=== PATIENT | male | born 1995 ===

== ENCOUNTER 2016-09-07 16:07 | Emergency (ER) | payer BC ==
[~2016-09-07] VITALS: Ht 167.6 cm; Wt 75.8 kg
[2016-09-07 16:13] VITALS: Ht 167.6 cm; Wt 75.8 kg
[2016-09-07] MEDS ORDERED: ONDANSETRON INJ 2 MG/ML 2 ML VIAL IV STA ×2 (16:52→18:58)
[2016-09-07] MEDS ORDERED: SODIUM CHLORIDE 0.9% 1000ML 2,000 ML IV STA (16:52)
[2016-09-07] MEDS ORDERED: KETOROLAC TROMETHAMINE 30 MG/ML VIAL IV STA (16:52)
[2016-09-07 17:04] LABS: BASO % 0.1 %; BASO ABS # 0.01 K/uL (0-0.2); COMPLETE YES; EOS % 0.1 %; HEMATOCRIT 50.2 % (42-52); IG% 0.2 %; LYMPH % 2.7 %; LYMPH ABS # 0.35 K/uL (1.2-3.4); MEAN CELL VOLUME 88.7 fL (80-100); MEAN CORPUSCULAR HEMOGLOBIN 30.2 pg (25-34); MEAN CORPUSCULAR HGB CONC 34.1 g/dl (32-36); MONO % 4.5 %; NEUT % 92.4 %; PLATELET COUNT 239 K/uL (130-400); RED BLOOD COUNT 5.66 M/uL (4.7-6.1); WHITE BLOOD COUNT 13.01 K/uL (4.8-10.8)
[2016-09-07 17:06] LABS: URINE APPEARANCE CLEAR (CLEAR); URINE BILIRUBIN NEG (NEG); URINE COLOR YELLOW; URINE NITRITE NEG (NEG); URINE PH 6.5 (4.5-7.5); URINE SPECIFIC GRAVITY 1.026 (1.000-1.030); UROBILINOGEN NEG (NEG); ZZUR CULT IF INDIC CLEAN CATCH NO
[2016-09-07 17:08] LABS: MANUAL MICROSCOPIC REQUIRED? NO; REVIEW REQ? YES
[2016-09-07 17:17] LABS: URINE MUCUS PRESENT (NONE PRSENT)
[2016-09-07 17:36] LABS: BUN/CREATININE RATIO 17.5 (10-20); CALCIUM 9.1 mg/dl (8.5-10.1); CREATININE 1.1 mg/dl (0.60-1.40)
[2016-09-07] MEDS ORDERED: ONDA4TAB46 PO (19:25)
[2016-09-07] MEDS ORDERED: ONDANSETRON HOME PACK 4MG OD TAB PO ONE (19:30)
[2016-09-07 20:07] VITALS: BP 131/77; PULSE 102; TEMP 36.8; O2SAT 95
--- NOTE | 2016-09-07 23:40 | EMERGENCY ROOM VISIT NOTE ---
History Report prepared by Shant: Antonio Voss Under the Supervision of: Ronna PathakO. First contact with patient: 16:28 Chief Complaint: VOMITING Stated Complaint: THROWING UP,CANT KEEP ANYTHING DOWN, DIZZY History of Present Illness The patient is a 21 year old male who presents to the Emergency Room with complaints of persistent diarrhea and vomiting that began this morning, several hours prior to arrival. The patient states that he did go out to the bars last night, and thought that his symptoms this morning were the result of an alcohol hangover. The vomiting and diarrhea continued throughout the day and he could not eat or drink anything. He started to feel dizzy this afternoon from not eating or drinking. The patient also complains of nausea and diffuse abdominal pain throughout the day. This abdominal pain is improved after a bowel movement or vomiting for a short period of time, and then returns. He claims that he has had six episodes of vomiting and two episodes of diarrhea today. His roommate did have a GI bug recently that resolved on its own. He denies headache, change in vision, fevers, chest pain, shortness of breath, pain with urination, and melena. He denies any history of abdominal surgery. Source of History: patient Onset: Several hours [employer] Position: other (Gastrointestinal) Quality: other (V/D) Timing: other (Persistent) Associated Symptoms: + abdominal pain Note: Dizziness. Review of Systems See HPI for pertinent positives & negatives. A total of 10 systems reviewed and were otherwise negative. Past Medical & Surgical Patient notes no past medical/surgical histories. Family History Patient reports no family medical histories. Social History Smoking Status: Never Smoker Alcohol Use: occasionally Marital Status: single Housing Status: lives with roommate Occupation Status: [employer] student Current/Historical Medications Scheduled PRN Ondansetron Hcl (Zofran), 4 MG PO TID PRN for Nausea Allergies Coded Allergies: No Known Allergies (Unverified , 09/07/16) Physical Exam Vital Signs Date Time Temp Pulse Resp B/P Pulse Ox O2 Delivery O2 Flow Rate FiO2 09/07/16 20:07 102 20 131/77 95 Room Air 09/07/16 20:07 36.8 102 20 131/77 95 09/07/16 18:45 101 20 127/78 95 Room Air 09/07/16 16:47 101 20 128/81 95 Room Air 09/07/16 16:13 36.8 109 20 130/86 95 Room Air Physical Exam GENERAL: Laying in bed, disheveled appearing. Non-toxic. EYE EXAM: normal conjunctiva, PERRL and EOM's grossly intact OROPHARYNX: no exudate, no erythema, lips, buccal mucosa, and tongue normal and mucous membranes are moist NECK: supple, no nuchal rigidity, no adenopathy, non-tender LUNGS: Clear to auscultation. Normal chest wall mechanics HEART: Tachycardiac. no murmurs, S1 normal and S2 normal ABDOMEN: abdomen soft, non-tender, normo-active bowel sounds, no masses, no rebound or guarding. BACK: Back is symmetrical on inspection and there is no deformity, no midline tenderness, no CVA tenderness. SKIN: no rashes and no bruising UPPER EXTREMITIES: upper extremities are grossly normal. LOWER EXTREMITIES: No pitting edema. NEURO EXAM: Normal sensorium, cranial nerves II-XII grossly intact, normal speech, no gross weakness of arms, no gross weakness of legs. Medical Decision & Procedures Laboratory Results 09/07/16 16:40 Red Blood Count 5.66, Mean Corpuscular Volume 88.7, Mean Corpuscular Hemoglobin 30.2, Mean Corpuscular Hemoglobin Concent 34.1, Mean Platelet Volume 11.0, Neutrophils (%) (Auto) 92.4, Lymphocytes (%) (Auto) 2.7, Monocytes (%) (Auto) 4.5, Eosinophils (%) (Auto) 0.1, Basophils (%) (Auto) 0.1, Neutrophils # (Auto) 12.04, Lymphocytes # (Auto) 0.35, Monocytes # (Auto) 0.58, Eosinophils # (Auto) 0.01, Basophils # (Auto) 0.01 09/07/16 16:40 Test 09/07/16 16:40 White Blood Count 13.01 K/uL (4.8-10.8) Red Blood Count 5.66 M/uL (4.7-6.1) Hemoglobin 17.1 g/dL (14.0-18.0) Hematocrit 50.2 % (42-52) Mean Corpuscular Volume 88.7 fL (80-100) Mean Corpuscular Hemoglobin 30.2 pg (25-34) Mean Corpuscular Hemoglobin Concent 34.1 g/dl (32-36) Platelet Count 239 K/uL (130-400) Mean Platelet Volume 11.0 fL (7.4-10.4) Neutrophils (%) (Auto) 92.4 % Lymphocytes (%) (Auto) 2.7 % Monocytes (%) (Auto) 4.5 % Eosinophils (%) (Auto) 0.1 % Basophils (%) (Auto) 0.1 % Neutrophils # (Auto) 12.04 K/uL (1.4-6.5) Lymphocytes # (Auto) 0.35 K/uL (1.2-3.4) Monocytes # (Auto) 0.58 K/uL (0.11-0.59) Eosinophils # (Auto) 0.01 K/uL (0-0.5) Basophils # (Auto) 0.01 K/uL (0-0.2) RDW Standard Deviation 43.2 fL (36.4-46.3) RDW Coefficient of Variation 13.3 % (11.5-14.5) Immature Granulocyte % (Auto) 0.2 % Immature Granulocyte # (Auto) 0.02 K/uL (0.00-0.02) Urine Color YELLOW Urine Appearance CLEAR (CLEAR) Urine pH 6.5 (4.5-7.5) Urine Specific [place] 1.026 (1.000-1.030) Urine Protein NEG (NEG) Urine Glucose (UA) NEG (NEG) Urine Ketones NEG (NEG) Urine Occult Blood NEG (NEG) Urine Nitrite NEG (NEG) Urine Bilirubin NEG (NEG) Urine Urobilinogen NEG (NEG) Urine Leukocyte Esterase NEG (NEG) Urine WBC (Auto) 1-5 /hpf (0-5) Urine RBC (Auto) 0-4 /hpf (0-4) Urine Hyaline Casts (Auto) 1-5 /lpf (0-5) Urine Epithelial Cells (Auto) 5-10 /lpf (0-5) Urine Bacteria (Auto) NEG (NEG) Urine Mucus PRESENT (NONE PRSENT) Anion Gap 11.0 mmol/L (3-11) Est Creatinine Clear Calc Drug Dose 95.8 ml/min Estimated GFR () 110.6 Estimated GFR (Non- 95.5 BUN/Creatinine Ratio 17.5 (10-20) Calcium Level 9.1 mg/dl (8.5-10.1) Total Bilirubin 0.7 mg/dl (0.2-1) Direct Bilirubin 0.1 mg/dl (0-0.2) Aspartate Amino Transf (AST/SGOT) 18 U/L (15-37) Alanine Aminotransferase (ALT/SGPT) 31 U/L (12-78) Alkaline Phosphatase 86 U/L (45-117) Total Protein 8.6 gm/dl (6.4-8.2) Albumin 4.5 gm/dl (3.4-5.0) Lipase 95 U/L (73-393) Laboratory results per my review. Medications Administered Medications (Trade) Dose Ordered Sig/Anabella Route Start Time Stop Time Status Last Admin Dose Admin Sodium Chloride (Nss 1000ml) 2,000 ml @ 999 mls/hr Q2H1M STAT IV 09/07/16 16:52 09/07/16 18:52 DC 09/07/16 17:08 999 MLS/HR Ondansetron HCl (Zofran Inj) 4 mg NOW STAT IV 09/07/16 16:52 09/07/16 16:53 DC 09/07/16 17:08 4 MG Ketorolac Tromethamine (Toradol Inj) 30 mg NOW STAT IV 09/07/16 16:52 09/07/16 16:53 DC 09/07/16 17:09 30 MG Ondansetron HCl (Zofran Inj) 4 mg NOW STAT IV 09/07/16 18:58 09/07/16 18:59 DC 09/07/16 19:07 4 MG Ondansetron HCl (ZOFRAN ODT 4MG Home Pack) 1 homepack UD ONCE PO 09/07/16 19:30 09/07/16 19:31 DC 09/07/16 20:06 1 HOMEPACK ED Course ED COURSE: Vital signs were reviewed and showed tachycardiac heart rate. The patients medical record was reviewed The above diagnostic studies were performed and reviewed. ED treatments and interventions as stated above. 1644: The patient was evaluated in room B10. A complete history and physical examination was performed. 1652: Ordered Toradol 30 mg IV, Zofran 4 mg IV, Sodium Chloride 2000 mL @ 999 mL /hr IV. 1841: I checked on the patient at this time. I also spoke with his sister who is a physician. They are happy with the treatment plan. 1858: Ordered Zofran 4 mg IV. 1923: The patient is handling fluids well at this time. 1929: Ordered Zofran 1 homepack PO 1935: Upon reevaluation, the patient is feeling well.I discussed my findings with the patient and he understands and agrees with the treatment plan. Based on the patients age, coexisting illnesses, exam and lab findings the decision to treat as an outpatient was made. The patient remained stable while under my care. The patient appeared well at the time of discharge. Medical Decision Differential diagnosis: Etiologies such as gastroenteritis, food borne illness, infections, appendicitis , diverticulitis, inflammatory bowel disease, obstruction, GI bleed, biliary pathology, as well as others were entertained. The patient's history was concerning for nausea, vomiting, diarrhea, and abdominal pain. He notes that this started this a.m. He had 6 episodes of vomiting and 2 episodes of diarrhea. His room and has the same symptoms. On exam he is completely benign abdomen. He is given 2 L normal saline along with Zofran and Toradol. He had near complete resolution of all the symptoms. He is able tolerate a small amount Gatorade. Labs show a mild leukocytosis. BMP along with LFTs, bilirubin and lipase was unremarkable. UA was unremarkable. On reexam has fairly significant better. Discussed this with his sister who is an internal medicine doctor. I do favor this likely gastroenteritis. He is given short instructions to follow-up with [facility] within 24 hours for repeat abdominal check. Discussed with Pt concerning signs and symptoms to watch out for. Pt was instructed to follow up with their PCP and discussed with the patient their option to return to the ED at anytime for persistent or worsening symptoms. The appropriate anticipatory guidance and out- patient management, including indications for return to the emergency department , were explained at length to the patient and understood. Impression Primary Impression: Gastroenteritis Additional Impression: Leukocytosis Scribe Attestation The scribe's documentation has been prepared under my direction and personally reviewed by me in its entirety. I confirm that the note above accurately reflects all work, treatment, procedures, and medical decision making performed by me. Departure Information Dispostion Home / Self-Care Prescriptions Ondansetron Hcl (ZOFRAN) 4 Mg Tab 4 MG PO TID Y for Nausea, #20 TAB Prov: Moises Jeffery, DO 09/07/16 Forms HOME CARE DOCUMENTATION FORM, IMPORTANT VISIT INFORMATION Patient Instructions My [facility] Additional Instructions Please follow up with your primary care doctor or if you are a student [facility] with in the next 24 hours. Any worsening of your symptoms, please return to the ED immediately. This includes passing out, fevers greater than 100.4, worsening abdominal pain, persistent vomiting, unable to eat or drink anything, or any other concerning signs or symptoms from your standpoint. Problem Qualifiers Additional Impression: Leukocytosis Leukocytosis type: unspecified Qualified Codes: D72.829 - Elevated white blood cell count, unspecified
== END 2016-09-07 20:08 | disposition home or self-care (01) ==
LOC: C.EDB 16:10
DX: K52.9 Noninfective gastroenteritis and colitis, unspecified (principal); D72.829 Elevated white blood cell count, unspecified